=== PATIENT | female | born 1990 | race Two or more races ===

== ENCOUNTER 2018-08-17 05:43 | Inpatient (IN) | payer BC ==
--- NOTE | 2018-08-12 10:34 | PCM.LDHP ---
L&D History of Present Illness - General Date of Service: 08/11/18 Admit Problem/Dx: Admission Diagnosis/Problem Admission Diagnosis/Problem Source of Information: Patient History Limitations: Reports: No Limitations - History of Present Illness Introduction:: Leslie Alegre is a 28 year old female at 38 weeks 4 days (DANIEL 08/21/2018) by LMP consistent with 11 week ultrasound who presents for preoperative appointment for scheduled repeat section. Her repeat section scheduled for 08/17/2018 and she will be 39 weeks 3 days on day of the scheduled repeat section. She denies any contractions or cramping episodes. Denies any leaking of fluid or vaginal bleeding. She denies any abdominal or pelvic pain. Present Illness Comments:: Leslie Alegre is a 28 year old female currently at 38 weeks 4 days (DANIEL ) by LMP consistent with 11 week ultrasound with scheduled repeat section on 08/17/2018 when she will be 39 weeks 3 days. She has had routine care with myself starting at 11 weeks gestational age. She received flu vaccine in January 2018 and TDaP vaccine in June 2018. Overall her has been without significant complications. 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 The titer level did rise to 4 at her 36 week appointment. The level was repeated at her appointment on 2018. * History of section 2 and desires repeat * GBS bacteriuria and patient will be treated with antibiotics for section * Gastroesophageal reflux disease in treated with ranitidine * Mild anemia with hemoglobin of 11.0 on 07/27/2018, started on iron supplementation. Repeat hemoglobin was 11.4 on 08/11/2018. labs Blood type: A+ Antibody screen: Positive for anti-JKa antibody First trimester hematocrit/hemoglobin: 37.8%/12.9 on 02/11/2018 Platelets: 241 on 02/11/2018 Urine culture: GBS bacteriuria with colony count of 10-20,000 CFU Rubella status: Immune Hepatitis B surface antigen: Negative RPR: Negative HIV: Negative Gonorrhea: Negative Chlamydia: Negative Anatomy ultrasound: Normal anatomy, anterior placenta, no previa, 43rd percentile on 04/01/2018 One hour glucose tolerance test: 70 Second trimester hematocrit/hemoglobin: 35.4%/11.8 on 05/15/2018 Platelets: 276 on 05/15/2018 GBS status: Positive GBS bacteriuria - Related Data Allergies/Adverse Reactions: Allergies Allergy/AdvReac Type Severity Reaction Status Date / Time No Known Allergies Allergy Verified 07/10/18 11:31 Past Medical History Gastrointestinal History: Reports: GERD (in ) 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: : 3 Para: 2 Hematologic History: Reports: Other (See Below) (Positive anti-JKa antibody) Social & Family History - Tobacco Use Smoking Status *Q: Never Smoker - Tobacco Core Measures Tobacco Use/Smoking Within Last 30 Days: No Smokeless Tobacco Use in Last 30 Days: No - Alcohol Use Alcohol Use History: No - Recreational Drug Use Recreational Drug Use: No Drug Use in Last 12 Months: No - Living Situation & Occupation Living situation: Reports: , with Spouse H&P Review of Systems - Review of Systems: Review Of Systems: See Below General: Denies: Fever, Chills, Malaise, Weakness, Fatigue HEENT: Denies: Rhinitis, Post Nasal Drip, Sinus Congestion, Sore Throat, Visual Changes Pulmonary: Denies: Shortness of Breath, Wheezing, Pleuritic Chest Pain, Cough Cardiovascular: Denies: Chest Pain, Palpitations, Dyspnea on Exertion, Orthopnea Gastrointestinal: Denies: Abdominal Pain, Constipation, Diarrhea, Nausea, Vomiting Genitourinary: Denies: Dysuria, Frequency, Burning, Pain, Urgency Musculoskeletal: Reports: Joint Pain (Right hip pain with extended walking or standing) Skin: Denies: Rash, Lesions Psychiatric: Denies: Depression, Anxiety Neurological: Denies: Headache Hematologic/Lymphatic: Reports: Anemia (mild) L&D Exam - Exam Exam: See Below - Vital Signs Vital Signs: BP: 106/70 - OB Specific Fundal Height In cm: 38 Contraction Duration (sec): None Contraction Frequency (min): None Movement: Active Heart Tones: Present Heart Tones per Min: 147 Presentation: Vertex Estimated Weight: 6.5 lbs by José Luis'yulisa in the office today - Exam General: Alert, Oriented HEENT: Conjunctiva Clear, EOMI Neck: Supple, Trachea Midline Lungs: Clear to Auscultation, Normal Respiratory Effort Cardiovascular: Regular Rate, Regular Rhythm GI/Abdominal Exam: Soft, Non-Tender, No Distention, Other (Gravid). No: Guarding, Rigid, Rebound Genitourinary: Deferred Back Exam: Normal Inspection, Full Range of Motion Extremities: No Pedal Edema Skin: Warm, Dry, Intact Psychiatric: Alert, Normal Affect, Normal Mood - Problem List (1) 39 weeks gestation of SNOMED Code(s): 03642517 ICD Code: Z3A.39 - 39 WEEKS GESTATION OF Status: Acute (2) History of delivery, currently SNOMED Code(s): 229135682, 734592283 ICD Code: O34.219 - MATERNAL CARE FOR UNSP TYPE SCAR FROM PREVIOUS DEL Status: Acute (3) History of 2 sections SNOMED Code(s): 810731626 ICD Code: Z98.891 - HISTORY OF UTERINE SCAR FROM PREVIOUS SURGERY Status: Acute (4) Abnormal antibody titer SNOMED Code(s): 381794946, 347134456 ICD Code: R76.0 - RAISED ANTIBODY TITER Status: Acute (5) Gastroesophageal reflux in SNOMED Code(s): 04381297875409929 ICD Code: O99.619 - DISEASES OF THE DGSTV SYS COMP , UNSP TRIMESTER ; K21.9 - GASTRO-ESOPHAGEAL REFLUX DISEASE WITHOUT ESOPHAGITIS Status: Acute Problem List Initiated/Reviewed/Updated: Yes Assessment/Plan Comment:: Leslie Alegre is a 28-year-old 002 currently at 38 weeks 4 days (DANIEL 2018), who will be 39 weeks 3 days on day of her scheduled repeat section on 08/17/2018, with plan for repeat section. Admit to inpatient after section NST prior to section Place IV and have Lactated Ringer's at 125 ml/hr SCDs for DVT prophylaxis Nothing by mouth Activity as tolerated Plan for spinal injection for anesthesia RPR and type and screen prior to surgery Plans to breast-feed after delivery Plan for Ancef 2 g IV for antibiotic prophylaxis prior to surgery Armin Arroyo M.D. 10:41 AM 08/12/2018
[~2018-08-17 05:43] MED LIST: Lactated Ringers 1,000 ML IV SCH; Sodium Chloride 0.9% 10 ML Syringe FLUSH PRN
[2018-08-17] MEDS ORDERED: ceFAZolin 2 GM in Premix Bag 1 BAG IV ONE (06:45)
[2018-08-17] MEDS ORDERED: Morphine PF 10 MG/10 ML SDV ONE (06:48)
[2018-08-17] MEDS ORDERED: Oxytocin 10 Units/1 ML SDV ONE ×2 (06:51)
[2018-08-17] MEDS ORDERED: ceFAZolin 1 GM Vial ONE ×2 (06:53)
[2018-08-17] MEDS ORDERED: Ondansetron 4 MG/2 ML SDV ONE (06:54)
[2018-08-17] MEDS ORDERED: Citric Acid/Sodium Citrate Solution 30 ML Cup PO ONE (07:00)
[2018-08-17] MEDS ORDERED: Metoclopramide 10 MG/2 ML SDV IVPUSH ONE (07:00)
[2018-08-17] MEDS ORDERED: Nalbuphine 10 MG/1 ML Vial IVPUSH PRN (07:00)
[2018-08-17] MEDS ORDERED: Oxytocin/Lactated Ringers 10 UNIT/1,000 ML BAG IV SCH ×2 (07:00→10:35)
[2018-08-17] MEDS ORDERED: Bupivacaine 0.5% 30 ML SDV ONE (07:06)
--- NOTE | 2018-08-17 07:24 | PCM.PREANE ---
Preanesthetic Assessment - Anesthesia/Transfusion/Family Hx Anesthesia History: Prior Anesthesia Without Reaction Family History of Anesthesia Reaction: Yes Transfusion History: No Prior Transfusion(s) - Review of Systems General: No Symptoms Pulmonary: No Symptoms Cardiovascular: No Symptoms Gastrointestinal: No Symptoms Neurological: No Symptoms Other: Reports: None - Physical Assessment NPO Status Date: 08/16/18 NPO Status Time: 22:00 Pulse: 100 O2 Sat by Pulse Oximetry: 100 Respiratory Rate: 14 Blood Pressure: 98/69 Vital Signs: Last Vital Signs Temp 36.6 C 08/17/18 06:09 Pulse 100 08/17/18 06:09 Resp 14 08/17/18 06:09 BP 98/69 08/17/18 06:09 Pulse Ox Height: 1.6 m Weight: 80.739 kg ASA Class: 1 Mental Status: Alert & Oriented x3 Airway Class: Mallampati = 1 Dentition: Reports: Normal Dentition Thyro-Mental Finger Breadths: 3 Mouth Opening Finger Breadths: 3 ROM/Head Extension: Full Lungs: Clear to Auscultation, Normal Respiratory Effort Cardiovascular: Regular Rate, Regular Rhythm - Lab Values: Laboratory Last Values WBC 9.55 K/mm3 (3.98-10.04) 08/17/18 05:59 RBC 4.01 M/mm3 (3.98-5.22) 08/17/18 05:59 Hgb 11.7 gm/L (11.2-15.7) 08/17/18 05:59 Hct 35.8 % (34.1-44.9) 08/17/18 05:59 MCV 89.3 fl (79.4-94.8) 08/17/18 05:59 MCH 29.2 pg (25.6-32.2) 08/17/18 05:59 MCHC 32.7 g/dl (32.2-35.5) 08/17/18 05:59 RDW Std Deviation 47.5 fL (36.4-46.3) H 08/17/18 05:59 Plt Count 239 K/mm3 (182-369) 08/17/18 05:59 MPV 10.2 fl (9.4-12.3) 08/17/18 05:59 Neut % (Auto) 61.7 % (34.0-71.1) 08/17/18 05:59 Lymph % (Auto) 26.7 % (19.3-51.7) 08/17/18 05:59 [place] % (Auto) 8.1 % (4.7-12.5) 08/17/18 05:59 Eos % (Auto) 2.5 (0.7-5.8) 08/17/18 05:59 Baso % (Auto) 0.4 % (0.1-1.2) 08/17/18 05:59 Neut # (Auto) 5.89 K/mm3 (1.56-6.13) 08/17/18 05:59 Lymph # (Auto) 2.55 K/mm3 (1.18-3.74) 08/17/18 05:59 [place] # (Auto) 0.77 K/mm3 (0.24-0.36) H 08/17/18 05:59 Eos # (Auto) 0.24 K/mm3 (0.04-0.36) 08/17/18 05:59 Baso # (Auto) 0.04 K/mm3 (0.01-0.08) 08/17/18 05:59 Blood Type A POSITIVE 08/17/18 05:59 Gel Antibody Screen Positive 08/17/18 05:59 - Allergies Allergies/Adverse Reactions: Allergies Allergy/AdvReac Type Severity Reaction Status Date / Time No Known Allergies Allergy Verified 07/10/18 11:31 - Acknowledgements Anesthesia Type Planned: Spinal Pt an Appropriate Candidate for the Planned Anesthesia: Yes Alternatives and Risks of Anesthesia Discussed w Pt/Guardian: Yes Pt/Guardian Understands and Agrees with Anesthesia Plan: Yes PreAnesthesia Questionnaire HEENT History: Reports: None Cardiovascular History: Reports: None Respiratory History: Reports: None Gastrointestinal History: Reports: None Genitourinary History: Reports: None 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: Musculoskeletal History: Reports: None Neurological History: Reports: None Psychiatric History: Reports: None Endocrine/Metabolic History: Reports: None Hematologic History: Reports: Other (See Below) (Positive anti-JKa antibody) - Past Surgical History Female Surgical History: Reports: Section (x2) - SUBSTANCE USE Smoking Status *Q: Never Smoker Recreational Drug Use History: No - CURRENT (IN HOUSE) MEDS Current Meds: Current Medications Lactated Ringer's (Ringers, Lactated) 1,000 mls @ 125 mls/hr IV ASDIRECTED RUTH Last Admin: 08/17/18 07:15 Dose: 125 mls/hr Oxytocin/Lactated Ringer's (Pitocin In Lr 10 Units/1,000 Ml) 10 unit in 1,000 mls @ 100 mls/hr IV ASDIRECTED RUTH; Protocol Nalbuphine HCl (Nubain) 10 mg IVPUSH Q2H PRN PRN Reason: Pain Sodium Chloride (Saline Flush) 10 ml FLUSH ASDIRECTED PRN PRN Reason: Keep Vein Open Discontinued Medications Bupivacaine HCl (Marcaine 0.5%) Confirm Administered Dose 30 ml .ROUTE .STK-MED ONE Stop: 08/17/18 07:07 Cefazolin Sodium (Ancef) Confirm Administered Dose 1 gm .ROUTE .STK-MED ONE Stop: 08/17/18 06:54 Cefazolin Sodium (Ancef) Confirm Administered Dose 1 gm .ROUTE .STK-MED ONE Stop: 08/17/18 06:54 Citric Acid/Sodium Citrate (Bicitra Solution) 30 ml PO ONETIME ONE Stop: 08/17/18 07:01 Last Admin: 08/17/18 07:15 Dose: 30 ml Cefazolin Sodium/Dextrose 2 gm (/ Premix) 50 mls @ 100 mls/hr IV ONETIME ONE Stop: 08/17/18 07:14 Metoclopramide HCl (Reglan) 10 mg IVPUSH ONETIME ONE Stop: 08/17/18 07:01 Last Admin: 08/17/18 07:15 Dose: 10 mg Morphine Sulfate (Duramorph Pf) Confirm Administered Dose 10 mg .ROUTE .STK-MED ONE Stop: 08/17/18 06:49 Ondansetron HCl (Zofran) Confirm Administered Dose 4 mg .ROUTE .STK-MED ONE Stop: 08/17/18 06:55 Oxytocin (Pitocin) Confirm Administered Dose 10 unit .ROUTE .STK-MED ONE Stop: 08/17/18 06:52 Oxytocin (Pitocin) Confirm Administered Dose 10 unit .ROUTE .STK-MED ONE Stop: 08/17/18 06:52
[2018-08-17] MEDS ORDERED: ePHEDrine/Normal Saline 25 MG/5 ML Syringe ONE (08:34)
[2018-08-17] MEDS ORDERED: diphenhydrAMINE 50 MG/ML SDV IVPUSH PRN ×2 (08:47→10:35)
[2018-08-17] MEDS ORDERED: Ondansetron 4 MG/2 ML SDV IVPUSH PRN (08:47)
[2018-08-17] MEDS ORDERED: Ketorolac 30 MG/ML SDV ONE (08:50)
--- NOTE | 2018-08-17 09:22 | PCM.POSTAN ---
POST ANESTHESIA ASSESSMENT - MENTAL STATUS Mental Status: Alert, Oriented - VITAL SIGNS Pulse Rate: 89 SaO2: 100 Resp Rate: 17 Blood Pressure: 98/61 Temperature: 97.8 C - RESPIRATORY Respiratory Status: Respiratory Rate WNL, Airway Patent, O2 Saturation Stable - GASTROINTESTINAL GI Status: No Symptoms - POST OP HYDRATION Hydration Status: Adequate & Stable
[2018-08-17] MEDS ORDERED: Ondansetron 4 MG/2 ML SDV IV PRN (10:35)
[2018-08-17] MEDS ORDERED: Lanolin 100% Cream 7 GM Tube TOP PRN (10:35)
[2018-08-17] MEDS ORDERED: Acetaminophen/oxyCODONE 325-5 MG Tab PO PRN ×2 (10:35)
[2018-08-17] MEDS ORDERED: ePHEDrine 50 MG/ML SDV IVPUSH PRN (10:35)
[2018-08-17] MEDS ORDERED: Lactated Ringers 1,000 ML IV SCH (10:35)
[2018-08-17] MEDS ORDERED: Naloxone 0.4 MG/ML SDV IVPUSH PRN (10:35)
[2018-08-17] MEDS ORDERED: Aluminum Hydroxide/Magnesium Hydroxide/Simethicone Susp 30 ML Cup PO PRN (10:35)
--- NOTE | 2018-08-17 12:14 | PCM.OPNOTE ---
- General Post-Op/Procedure Note Date of Surgery/Procedure: 08/17/18 Operative Procedure(s): Repeat section Findings: Live female infant delivered in vertex presentation and 0 825. weight of 2960 g (6 pounds 8.4 ounces). Apgars of 8 and 9. There were areas of adhesions from the anterior uterine wall to the anterior abdominal wall that were taken down prior to the hysterotomy. There was also a prominent venous vessel in the lower uterine segment that was eventually tied off using a Federico stitch. The uterus, fallopian tubes and ovaries were overall normal. Pre Op Diagnosis: 39 weeks gestational age, history of section 2 and history of abnormal anti-JKa antibodies. Post-Op Diagnosis: Same Anesthesia Technique: Spinal Primary Surgeon: Armin Arroyo Anesthesia Provider: Ariana Howell Personal Lines Underwriter: Sav Yadav Personal Lines Underwriter: Ismael Ballesteros (PA Student) Reason Personal Lines Underwriter Was Necessary: Patient safety and reduction of morbidity and mortality Role of Personal Lines Underwriter: Retraction for visualization during procedure Pathology: None Fluid Replacement, Intraop: 1,300 Output, Urine Amount: 100 EBL in mLs: 450 Complications: None Condition: Good Free Text/Narrative:: Intake & Output 08/16/18 08/17/18 08/17/18 22:59 06:59 14:59 Intake Total 600 Output Total 450 Balance 150 Length of procedure: 46 minutes Procedure in Detail: The patient was seen in labor and delivery in room #5 and the risks, benefits and complications were discussed with the patient. The patient desired to proceed with section and appropriate consents were reviewed. The patient was taken to operating room #1. A Time Out was held and the patient was identified using 2 identifiers and the procedure was confirmed. The patient was given spinal anesthesia and was placed in dorsal supine position with leftward tilt. She was given 2 g Ancef for antibiotic prophylaxis. The patient was prepped and draped in the usual sterile manner. The abdominal skin was tested and the spinal anesthesia was found to be adequate. The skin was injected with 0.5% marcaine for local anesthesia. A Pfannenstiel skin incision was made and carried down through the subcutaneous tissue to the fascia with the scapel. The fascia was nicked in the midline using a scalpel and the fascial incision was extended transversely with Beal scissors. The inferior aspect of the fascia was grasped with Errol clamps and tented upwards. The fascia was from the underlying rectus muscle bluntly and sharply with Beal scissors. Attention was then turned to the superior aspect of the fascia and was grasped using Errol clamps and tented upwards. The underlying rectus muscle was dissected off bluntly and sharply with Beal scissors. The midline between the rectus muscles was using a hemostat clamp until the peritoneum was identified and entered sharply with Metzenbaum scissors. The rectus muscles were using blunt force traction. There was noted to be some scar tissue from the anterior surface of the uterus to the anterior abdominal wall. This is taken down using Metzenbaum scissors. There was noted be a very prominent venous vessel over the bladder flap and the left side of the uterus near the lower uterine segment. The utero- vesical peritoneal reflection was identified and the peritoneum was incised with Metzenabaum scissors and transversely extended. The bladder blade was inserted and the lower uterine segment was identified. A low transverse uterine incision was made sharply with a scalpel and extended laterally bluntly. The infant's head was brought to the uterine incision, the bladder blade was removed and the was delivered atraumatically. On 08/17/2018 a live female was delivered in vertex position at 0825, wt of 2960 grams, 6 pounds and 8.4 ounces. APGARS were 8 & 9. The nose and mouth were suctioned with bulb suction, the cord was doubly clamped and cut and was transferred to the awaiting manganese heater, Dr. Lisa, who took the baby to the warmer. The placenta was removed intact and appeared normal with a three vessel cord. The uterus was exteriorized and the uterine cavity was cleaned using lap sponges. The hysterotomy was closed with a running locked suture of 0-Vicryl. There was an area of bleeding noted superior to the hysterotomy that was repaired with several wnorst-st-pfamq sutures and hemostasis was noted. A second suture of 0-Vicryl was used to imbricate the hysterotomy. The area with the prominent lower uterine segment pain was having some bleeding and attempt was made to have control with a qojtcs-uy-uhkqx suture using 0 Vicryl. This was unsuccessful and continued to have some bleeding from this area. The vessel was clamped using a hemostat and a Federico stitch was placed around the vessel with 0 Vicryl suture. Hemostasis was noted at this time. The hysterotomy was hemostatic. The uterus, tubes and ovaries appeared overall normal. The uterus was then returned into the abdominal cavity. The hysterotomy was noted to have a small amount of bleeding near the right edge of the hysterotomy and this was made hemostatic with a wyupxt-jo-tyhsc stitch using 0 Vicryl. The fascia was noted to be hemostatic and the fascia was then reapproximated with running sutures of 0 PDS. The skin was reapproximated using 4-0 Monocryl and Steri-strips were applied over the incision. Instrument, sponge, and needle counts were correct prior to the abdominal closure and at the conclusion of the case.
[2018-08-17] MEDS: Ketorolac 30 MG/ML SDV IVPUSH SCH ×2 (15:19→21:04)
[2018-08-17] MEDS: Docusate Sodium 100 MG Cap PO SCH ×2 (21:19→22:19)
[2018-08-18] MEDS: Ketorolac 30 MG/ML SDV IVPUSH SCH (02:55)
--- NOTE | 2018-08-18 06:19 | PCM.SN ---
- Free Text/Narrative Note: Post Operative Progress Note POD # 1 Subjective: Doing well overall. Ambulating without difficulty but did have some increased amount of pain with ambulation. Lochia minimal. Hanson removed this morning and able to void without difficulty. Passing flatus. Tolerating regular diet without nausea or vomiting. Pain controlled with IV Toradol at this time. Breast-feeding with minimal difficulty. Objective: Vitals: Vital Signs - 24 hr 08/17/18 08/17/18 08/17/18 07:24 09:12 09:15 Temperature Temperature [ 36.6 C 36.6 C Temporal] Pulse, 100 Peripheral Pulse, 89 80 Peripheral [ Pulse Oximetry] Respiratory 14 17 16 Rate Blood Pressure 98/69 Blood Pressure 98/61 104/49 L [Left Arm] O2 Sat by Pulse 100 100 98 Oximetry 08/17/18 08/17/18 08/17/18 09:21 09:30 09:45 Temperature 97.8 C H Temperature [ 36.4 C 36.4 C Temporal] Pulse, 89 Peripheral Pulse, 80 80 Peripheral [ Pulse Oximetry] Respiratory 17 18 19 Rate Blood Pressure 98/61 Blood Pressure 94/55 L 103/61 [Left Arm] O2 Sat by Pulse 100 100 99 Oximetry 08/17/18 08/17/18 08/17/18 10:00 10:02 10:42 Temperature 36.9 C 37.2 C Temperature [ Temporal] Pulse, 76 87 Peripheral Pulse, Peripheral [ Pulse Oximetry] Respiratory 18 18 Rate Blood Pressure 127/113 H 115/89 Blood Pressure 98/70 [Left Arm] O2 Sat by Pulse 100 96 Oximetry 08/17/18 08/17/18 08/17/18 11:10 11:51 13:06 Temperature 36.7 C 36.3 C 36.3 C Temperature [ Temporal] Pulse, 84 94 95 Peripheral Pulse, Peripheral [ Pulse Oximetry] Respiratory 18 16 16 Rate Blood Pressure 106/61 100/58 L 108/62 Blood Pressure [Left Arm] O2 Sat by Pulse 98 98 99 Oximetry 08/17/18 08/17/18 08/17/18 15:35 16:48 21:15 Temperature 36.3 C 36.3 C 36.5 C Temperature [ Temporal] Pulse, 80 80 86 Peripheral Pulse, Peripheral [ Pulse Oximetry] Respiratory 16 16 16 Rate Blood Pressure 106/68 99/74 110/64 Blood Pressure [Left Arm] O2 Sat by Pulse 98 100 99 Oximetry 08/17/18 23:09 Temperature 36.6 C Temperature [ Temporal] Pulse, 85 Peripheral Pulse, Peripheral [ Pulse Oximetry] Respiratory 16 Rate Blood Pressure 102/64 Blood Pressure [Left Arm] O2 Sat by Pulse 97 Oximetry Physical Exam General: Alert and oriented, no acute distress Lungs: Clear to auscultation bilaterally Heart: Regular rate and rhythm Abdomen: Soft, minimal appropriate tenderness, non-distended, fundus midline, nontender and 2 finger breadths below the umbilicus Incision: Clean, dry and intact, no erythema, bleeding or drainage with Steri- Strips in place Extremities: No edema Labs: Laboratory Results - last 24 hr 08/17/18 08/17/18 08/17/18 Range/Units 05:59 05:59 05:59 WBC 9.55 (3.98-10.04) K/mm3 RBC 4.01 (3.98-5.22) M/mm3 Hgb 11.7 (11.2-15.7) gm/L Hct 35.8 (34.1-44.9) % MCV 89.3 (79.4-94.8) fl MCH 29.2 (25.6-32.2) pg MCHC 32.7 (32.2-35.5) g/dl RDW Std Deviation 47.5 H (36.4-46.3) fL Plt Count 239 (182-369) K/mm3 MPV 10.2 (9.4-12.3) fl Neut % (Auto) 61.7 (34.0-71.1) % Lymph % (Auto) 26.7 (19.3-51.7) % [place] % (Auto) 8.1 (4.7-12.5) % Eos % (Auto) 2.5 (0.7-5.8) Baso % (Auto) 0.4 (0.1-1.2) % Neut # (Auto) 5.89 (1.56-6.13) K/mm3 Lymph # (Auto) 2.55 (1.18-3.74) K/mm3 [place] # (Auto) 0.77 H (0.24-0.36) K/mm3 Eos # (Auto) 0.24 (0.04-0.36) K/mm3 Baso # (Auto) 0.04 (0.01-0.08) K/mm3 RPR Non-reactive (NONREACTIVE) Blood Type A POSITIVE Gel Antibody Screen Positive ASSESSMENT: 28-year-old female s/p repeat section POD #1 for history of section 2, complicated by positive anti-JKa antibodies, GBS bacteriuria, gastroesophageal reflux in and mild anemia with iron supplementation and resolution PLAN: Doing well Breast-feeding with minimal difficulty. Assist as needed Incision healing well. Continue to keep clean and dry. Lochia minimal. Continue to monitor for appropriate lochia. Continue routine post-operative care We will follow-up on morning CBC as it was drawn at time of my rounding Anticipate discharge home tomorrow Armin Arroyo MD 6:18 AM 08/18/2018
[2018-08-18] MEDS: Ibuprofen 600 MG Tab PO PRN ×2 (09:12→18:29)
[2018-08-18] MEDS: Prenatal Multivitamin with Calcium/Folic Acid/Iron Tab PO SCH (09:13)
--- NOTE | 2018-08-18 09:39 | PCM48HPAN ---
Post Anesthesia Note - EVALUATION WITHIN 48HRS OF ANESTHETIC Vital Signs in Normal Range: Yes Patient Participated in Evaluation: Yes Respiratory Function Stable: Yes Airway Patent: Yes Cardiovascular Function Stable: Yes Hydration Status Stable: Yes Pain Control Satisfactory: Yes Nausea and Vomiting Control Satisfactory: Yes Mental Status Recovered: Yes
[2018-08-18] MEDS: Docusate Sodium 100 MG Cap PO SCH (14:46)
[2018-08-19] MEDS: Docusate Sodium 100 MG Cap PO SCH ×2 (00:19→08:33)
[2018-08-19] MEDS: Ibuprofen 600 MG Tab PO PRN ×2 (00:20→08:33)
--- NOTE | 2018-08-19 08:19 | PCM.SN ---
- Free Text/Narrative Note: Post Operative Progress Note POD # 2 Subjective: Doing well overall. Ambulating without difficulty. Lochia minimal. Voiding without difficulty. Passing flatus and has had a bowel movement without difficulty. Tolerating regular diet without nausea or vomiting. Pain controlled with ibuprofen. Breast-feeding with minimal difficulty. Objective: Vitals: Vital Signs - 24 hr 08/18/18 08/18/18 08/18/18 10:06 14:45 21:52 Temperature 36.8 C 36.7 C Pulse, 97 90 86 Peripheral Respiratory 16 16 14 Rate Blood Pressure 108/69 108/66 102/58 L O2 Sat by Pulse 98 98 98 Oximetry 08/19/18 03:52 Temperature 36.6 C Pulse, 89 Peripheral Respiratory 16 Rate Blood Pressure 107/60 O2 Sat by Pulse 98 Oximetry Physical Exam General: Alert and oriented, no acute distress Lungs: Clear to auscultation bilaterally Heart: Regular rate and rhythm Abdomen: Soft, minimal appropriate tenderness, non-distended, fundus midline, nontender and 2 finger breadths below the umbilicus Incision: Clean, dry and intact, no erythema, bleeding or drainage with Steri- Strips in place Extremities: No edema Labs: Laboratory Tests 08/17/18 08/17/18 08/17/18 Range/Units 05:59 05:59 05:59 WBC 9.55 (3.98-10.04) K/mm3 RBC 4.01 (3.98-5.22) M/mm3 Hgb 11.7 (11.2-15.7) gm/L Hct 35.8 (34.1-44.9) % MCV 89.3 (79.4-94.8) fl MCH 29.2 (25.6-32.2) pg MCHC 32.7 (32.2-35.5) g/dl RDW Std Deviation 47.5 H (36.4-46.3) fL Plt Count 239 (182-369) K/mm3 MPV 10.2 (9.4-12.3) fl Neut % (Auto) 61.7 (34.0-71.1) % Lymph % (Auto) 26.7 (19.3-51.7) % Grimes % (Auto) 8.1 (4.7-12.5) % Eos % (Auto) 2.5 (0.7-5.8) Baso % (Auto) 0.4 (0.1-1.2) % Neut # (Auto) 5.89 (1.56-6.13) K/mm3 Lymph # (Auto) 2.55 (1.18-3.74) K/mm3 Grimes # (Auto) 0.77 H (0.24-0.36) K/mm3 Eos # (Auto) 0.24 (0.04-0.36) K/mm3 Baso # (Auto) 0.04 (0.01-0.08) K/mm3 RPR Non-reactive (NONREACTIVE) Blood Type A POSITIVE Gel Antibody Screen Positive Antibody Identification Anti-Jka 08/18/18 Range/Units 06:10 WBC 8.14 (3.98-10.04) K/mm3 RBC 3.43 L (3.98-5.22) M/mm3 Hgb 9.9 L D (11.2-15.7) gm/L Hct 31.2 L (34.1-44.9) % MCV 91.0 (79.4-94.8) fl MCH 28.9 (25.6-32.2) pg MCHC 31.7 L (32.2-35.5) g/dl RDW Std Deviation 48.0 H (36.4-46.3) fL Plt Count 205 (182-369) K/mm3 MPV 10.1 (9.4-12.3) fl Neut % (Auto) 70.0 (34.0-71.1) % Lymph % (Auto) 20.3 (19.3-51.7) % Grimes % (Auto) 7.1 (4.7-12.5) % Eos % (Auto) 1.7 (0.7-5.8) Baso % (Auto) 0.5 (0.1-1.2) % Neut # (Auto) 5.70 (1.56-6.13) K/mm3 Lymph # (Auto) 1.65 (1.18-3.74) K/mm3 Grimes # (Auto) 0.58 H (0.24-0.36) K/mm3 Eos # (Auto) 0.14 (0.04-0.36) K/mm3 Baso # (Auto) 0.04 (0.01-0.08) K/mm3 RPR (NONREACTIVE) Blood Type Gel Antibody Screen Antibody Identification ASSESSMENT: 28-year-old female s/p repeat section POD #2 for history of section 2, complicated by positive anti-JKa antibodies, GBS bacteriuria, gastroesophageal reflux in and mild anemia with iron supplementation and resolution PLAN: Doing well Breast-feeding with minimal difficulty. Assist as needed Incision healing well. Continue to keep clean and dry. Lochia minimal. Continue to monitor for appropriate lochia. Continue routine post-operative care Anticipated normal drop in her hemoglobin from preoperative to postoperative day #1. Vital signs have been normal. Low concern for acute blood loss anemia requiring blood transfusion. Discharge home today Armin Arroyo MD 8:18 AM 08/19/2018
--- NOTE | 2018-08-19 08:29 | PCM.DCSUM1 ---
Discharge Summary - Hospital Course Free Text/Narrative:: Procedure in Detail: The patient was seen in labor and delivery in room #5 and the risks, benefits and complications were discussed with the patient. The patient desired to proceed with section and appropriate consents were reviewed. The patient was taken to operating room #1. A Time Out was held and the patient was identified using 2 identifiers and the procedure was confirmed. The patient was given spinal anesthesia and was placed in dorsal supine position with leftward tilt. She was given 2 g Ancef for antibiotic prophylaxis. The patient was prepped and draped in the usual sterile manner. The abdominal skin was tested and the spinal anesthesia was found to be adequate. The skin was injected with 0.5% marcaine for local anesthesia. A Pfannenstiel skin incision was made and carried down through the subcutaneous tissue to the fascia with the scapel. The fascia was nicked in the midline using a scalpel and the fascial incision was extended transversely with Beal scissors. The inferior aspect of the fascia was grasped with Errol clamps and tented upwards. The fascia was from the underlying rectus muscle bluntly and sharply with Beal scissors. Attention was then turned to the superior aspect of the fascia and was grasped using Errol clamps and tented upwards. The underlying rectus muscle was dissected off bluntly and sharply with Beal scissors. The midline between the rectus muscles was using a hemostat clamp until the peritoneum was identified and entered sharply with Metzenbaum scissors. The rectus muscles were using blunt force traction. There was noted to be some scar tissue from the anterior surface of the uterus to the anterior abdominal wall. This is taken down using Metzenbaum scissors. There was noted be a very prominent venous vessel over the bladder flap and the left side of the uterus near the lower uterine segment. The utero- vesical peritoneal reflection was identified and the peritoneum was incised with Metzenabaum scissors and transversely extended. The bladder blade was inserted and the lower uterine segment was identified. A low transverse uterine incision was made sharply with a scalpel and extended laterally bluntly. The 's head was brought to the uterine incision, the bladder blade was removed and the infant was delivered atraumatically. On 08/17/2018 a live female infant was delivered in vertex position at 0825, wt of 2960 grams, 6 pounds and 8.4 ounces. APGARS were 8 & 9. The nose and mouth were suctioned with bulb suction, the cord was doubly clamped and cut and was transferred to the awaiting material handling crew supervisor, Dr. Lisa, who took the baby to the warmer. The placenta was removed intact and appeared normal with a three vessel cord. The uterus was exteriorized and the uterine cavity was cleaned using lap sponges. The hysterotomy was closed with a running locked suture of 0-Vicryl. There was an area of bleeding noted superior to the hysterotomy that was repaired with several yekscq-lg-ivbyy sutures and hemostasis was noted. A second suture of 0-Vicryl was used to imbricate the hysterotomy. The area with the prominent lower uterine segment pain was having some bleeding and attempt was made to have control with a spvmjd-vc-trtsv suture using 0 Vicryl. This was unsuccessful and continued to have some bleeding from this area. The vessel was clamped using a hemostat and a Federico stitch was placed around the vessel with 0 Vicryl suture. Hemostasis was noted at this time. The hysterotomy was hemostatic. The uterus, tubes and ovaries appeared overall normal. The uterus was then returned into the abdominal cavity. The hysterotomy was noted to have a small amount of bleeding near the right edge of the hysterotomy and this was made hemostatic with a hfbmat-uq-rujhy stitch using 0 Vicryl. The fascia was noted to be hemostatic and the fascia was then reapproximated with running sutures of 0 PDS. The skin was reapproximated using 4-0 Monocryl and Steri-strips were applied over the incision. Instrument, sponge, and needle counts were correct prior to the abdominal closure and at the conclusion of the case. HPI Initial Comments: Procedure in Detail: The patient was seen in labor and delivery in room #5 and the risks, benefits and complications were discussed with the patient. The patient desired to proceed with section and appropriate consents were reviewed. The patient was taken to operating room #1. A Time Out was held and the patient was identified using 2 identifiers and the procedure was confirmed. The patient was given spinal anesthesia and was placed in dorsal supine position with leftward tilt. She was given 2 g Ancef for antibiotic prophylaxis. The patient was prepped and draped in the usual sterile manner. The abdominal skin was tested and the spinal anesthesia was found to be adequate. The skin was injected with 0.5% marcaine for local anesthesia. A Pfannenstiel skin incision was made and carried down through the subcutaneous tissue to the fascia with the scapel. The fascia was nicked in the midline using a scalpel and the fascial incision was extended transversely with Beal scissors. The inferior aspect of the fascia was grasped with Errol clamps and tented upwards. The fascia was from the underlying rectus muscle bluntly and sharply with Beal scissors. Attention was then turned to the superior aspect of the fascia and was grasped using Errol clamps and tented upwards. The underlying rectus muscle was dissected off bluntly and sharply with Beal scissors. The midline between the rectus muscles was using a hemostat clamp until the peritoneum was identified and entered sharply with Metzenbaum scissors. The rectus muscles were using blunt force traction. There was noted to be some scar tissue from the anterior surface of the uterus to the anterior abdominal wall. This is taken down using Metzenbaum scissors. There was noted be a very prominent venous vessel over the bladder flap and the left side of the uterus near the lower uterine segment. The utero- vesical peritoneal reflection was identified and the peritoneum was incised with Metzenabaum scissors and transversely extended. The bladder blade was inserted and the lower uterine segment was identified. A low transverse uterine incision was made sharply with a scalpel and extended laterally bluntly. The 's head was brought to the uterine incision, the bladder blade was removed and the infant was delivered atraumatically. On 08/17/2018 a live female infant was delivered in vertex position at 0825, wt of 2960 grams, 6 pounds and 8.4 ounces. APGARS were 8 & 9. The nose and mouth were suctioned with bulb suction, the cord was doubly clamped and cut and infant was transferred to the awaiting material handling crew supervisor, Dr. Lisa, who took the baby to the warmer. The placenta was removed intact and appeared normal with a three vessel cord. The uterus was exteriorized and the uterine cavity was cleaned using lap sponges. The hysterotomy was closed with a running locked suture of 0-Vicryl. There was an area of bleeding noted superior to the hysterotomy that was repaired with several vxzcah-ff-sqhrv sutures and hemostasis was noted. A second suture of 0-Vicryl was used to imbricate the hysterotomy. The area with the prominent lower uterine segment pain was having some bleeding and attempt was made to have control with a njyoqm-xx-nkmyl suture using 0 Vicryl. This was unsuccessful and continued to have some bleeding from this area. The vessel was clamped using a hemostat and a Federico stitch was placed around the vessel with 0 Vicryl suture. Hemostasis was noted at this time. The hysterotomy was hemostatic. The uterus, tubes and ovaries appeared overall normal. The uterus was then returned into the abdominal cavity. The hysterotomy was noted to have a small amount of bleeding near the right edge of the hysterotomy and this was made hemostatic with a dpbcat-gq-dqmym stitch using 0 Vicryl. The fascia was noted to be hemostatic and the fascia was then reapproximated with running sutures of 0 PDS. The skin was reapproximated using 4-0 Monocryl and Steri-strips were applied over the incision. Instrument, sponge, and needle counts were correct prior to the abdominal closure and at the conclusion of the case. Brief History: Procedure in Detail: The patient was seen in labor and delivery in room #5 and the risks, benefits and complications were discussed with the patient. The patient desired to proceed with section and appropriate consents were reviewed. The patient was taken to operating room # 1. A Time Out was held and the patient was identified using 2 identifiers and the procedure was confirmed. The patient was given spinal anesthesia and was placed in dorsal supine position with leftward tilt. She was given 2 g Ancef for antibiotic prophylaxis. The patient was prepped and draped in the usual sterile manner. The abdominal skin was tested and the spinal anesthesia was found to be adequate. The skin was injected with 0.5% marcaine for local anesthesia. A Pfannenstiel skin incision was made and carried down through the subcutaneous tissue to the fascia with the scapel. The fascia was nicked in the midline using a scalpel and the fascial incision was extended transversely with Beal scissors. The inferior aspect of the fascia was grasped with Errol clamps and tented upwards. The fascia was from the underlying rectus muscle bluntly and sharply with Beal scissors. Attention was then turned to the superior aspect of the fascia and was grasped using Errol clamps and tented upwards. The underlying rectus muscle was dissected off bluntly and sharply with Beal scissors. The midline between the rectus muscles was using a hemostat clamp until the peritoneum was identified and entered sharply with Metzenbaum scissors. The rectus muscles were using blunt force traction. There was noted to be some scar tissue from the anterior surface of the uterus to the anterior abdominal wall. This is taken down using Metzenbaum scissors. There was noted be a very prominent venous vessel over the bladder flap and the left side of the uterus near the lower uterine segment. The utero-vesical peritoneal reflection was identified and the peritoneum was incised with Metzenabaum scissors and transversely extended. The bladder blade was inserted and the lower uterine segment was identified. A low transverse uterine incision was made sharply with a scalpel and extended laterally bluntly. The 's head was brought to the uterine incision, the bladder blade was removed and the was delivered atraumatically. On 2018 a live female infant was delivered in vertex position at 0825, wt of 2960 grams, 6 pounds and 8.4 ounces. APGARS were 8 & 9. The nose and mouth were suctioned with bulb suction, the cord was doubly clamped and cut and infant was transferred to the awaiting material handling crew supervisor, Dr. Lisa, who took the baby to the warmer. The placenta was removed intact and appeared normal with a three vessel cord. The uterus was exteriorized and the uterine cavity was cleaned using lap sponges. The hysterotomy was closed with a running locked suture of 0 -Vicryl. There was an area of bleeding noted superior to the hysterotomy that was repaired with several ohrwym-sr-wgfvb sutures and hemostasis was noted. A second suture of 0-Vicryl was used to imbricate the hysterotomy. The area with the prominent lower uterine segment pain was having some bleeding and attempt was made to have control with a klfmim-wd-arirw suture using 0 Vicryl. This was unsuccessful and continued to have some bleeding from this area. The vessel was clamped using a hemostat and a Federico stitch was placed around the vessel with 0 Vicryl suture. Hemostasis was noted at this time. The hysterotomy was hemostatic. The uterus, tubes and ovaries appeared overall normal. The uterus was then returned into the abdominal cavity. The hysterotomy was noted to have a small amount of bleeding near the right edge of the hysterotomy and this was made hemostatic with a decfmu-vn-qxnxt stitch using 0 Vicryl. The fascia was noted to be hemostatic and the fascia was then reapproximated with running sutures of 0 PDS. The skin was reapproximated using 4-0 Monocryl and Steri-strips were applied over the incision. Instrument , sponge, and needle counts were correct prior to the abdominal closure and at the conclusion of the case. Diagnosis: Stroke: No - Discharge Data Discharge Date: 08/19/18 Discharge Disposition: Home, Self-Care 01 Condition: Good - Discharge Diagnosis/Problem(s) (1) 39 weeks gestation of SNOMED Code(s): 32143547 ICD Code: Z3A.39 - 39 WEEKS GESTATION OF Status: Acute Current Visit: No (2) History of delivery, currently SNOMED Code(s): 225408795, 489538807 ICD Code: O34.219 - MATERNAL CARE FOR UNSP TYPE SCAR FROM PREVIOUS DEL Status: Acute Current Visit: No (3) History of 2 sections SNOMED Code(s): 953833082 ICD Code: Z98.891 - HISTORY OF UTERINE SCAR FROM PREVIOUS SURGERY Status: Acute Current Visit: No (4) Abnormal antibody titer SNOMED Code(s): 023416873, 190290701 ICD Code: R76.0 - RAISED ANTIBODY TITER Status: Acute Current Visit: No (5) Gastroesophageal reflux in SNOMED Code(s): 62453404748382647 ICD Code: O99.619 - DISEASES OF THE DGSTV SYS COMP , UNSP TRIMESTER ; K21.9 - GASTRO-ESOPHAGEAL REFLUX DISEASE WITHOUT ESOPHAGITIS Status: Acute Current Visit: No (6) delivery delivered SNOMED Code(s): 551880599 ICD Code: O82 - ENCOUNTER FOR DELIVERY WITHOUT INDICATION Status: Acute Current Visit: Yes - Patient Summary/Data Operative Procedure(s) Performed: Repeat section Complications: None Consults: None Hospital Course: Leslie Alegre was admitted for scheduled repeat section. She was taken back to the OR and given spinal injection for anesthesia. She was given Ancef 2 g IV for antibiotic prophylaxis. She was prepped and draped in the normal fashion. On 08/17/2018 she had a normal repeat delivery of a live female at 0825. Apgars of 8 and 9. Weight of 2960 g (6 pounds 8.4 ounces). She was closed in a normal fashion. There were no complications with the procedure. Please see the operative report for full details. Her post operative course was uneventful. Her pain was well controlled and she had minimal lochia. She was ambulating, tolerating a regular diet and voiding normally. She was passing flatus and has had a bowel movement. She was breast feeding without difficulty. She was afebrile and her hematocrit was 31.2 on POD #1. She desired to be discharged home on the morning of POD #2. Her blood type is A+. - Patient Instructions Diet: Regular Diet as Tolerated Activity: Apply Ice, As Tolerated, No Lifting Over 25 Pounds Activity, Other: Nothing in the vagina for 6 weeks Driving: Do Not Drive (While on narcotic medications or having significant pain. ) Showering/Bathing: May Shower Wound/Incision Care: Keep Operative Site/Wound Site Clean and Dry Notify Provider of: Fever, Increased Pain, Swelling and Redness, Drainage, Nausea and/or Vomiting Other/Special Instructions: Please contact your physician's office if you note any bleeding or pus coming from the abdominal incision. Please contact your physician's office if you have heavy vaginal bleeding enough to soak a pad in less than an hour for several hours. Monitor for any signs of an infection in the breasts with severe pain or redness of the breast. - Discharge Plan *PRESCRIPTION DRUG MONITORING PROGRAM REVIEWED*: Yes *COPY OF PRESCRIPTION DRUG MONITORING REPORT IN PATIENT UNA: No (No record of prescriptions in the drug monitoring program) Prescriptions/Med Rec: Hydrocodone/Acetaminophen [[place] 5-325 Tablet] 1 - 2 each PO Q6H PRN #10 tablet PRN Reason: Pain Home Medications: Home Meds Alum Hydrox/Mag Hydrox/Simeth [Mag-Al Plus] 30 ml PO Q8H PRN cup 08/19/18 [Rx] Docusate Sodium [Colace] 100 mg PO Q12H cap 08/19/18 [Rx] Hydrocodone/Acetaminophen [[place] 5-325 Tablet] 1 - 2 each PO Q6H PRN #10 tablet 08/19/18 [Rx] Ibuprofen [Motrin] 600 mg PO Q6H PRN tablet 08/19/18 [Rx] Lanolin [Lansinoh HPA] 1 applic TOP ASDIRECTED PRN tube 08/19/18 [Rx] Vit with Ca/FA/Iron [ Plus Iron] 1 each PO DAILY tablet [Rx] Patient Handouts: Care After Delivery Referrals: Armin Arroyo MD [Primary Care Provider] - (Follow-up in 2 weeks for routine postoperative appointment or earlier as needed.) - Discharge Summary/Plan Comment DC Time >30 min.: No - Patient Data Vitals - Most Recent: Last Vital Signs Temp 36.6 C 08/19/18 03:52 Pulse 89 08/19/18 03:52 Resp 16 08/19/18 03:52 BP 107/60 08/19/18 03:52 Pulse Ox 98 08/19/18 03:52 Weight - Most Recent: 80.739 kg I&O - Last 24 hours: Intake & Output 08/18/18 08/19/18 08/19/18 22:59 06:59 14:59 Intake Total 730 Balance 730 Lab Results - Last 24 hrs: Laboratory Results - last 24 hr 08/17/18 Range/Units 05:59 Antibody Identification Anti-Jka Med Orders - Current: Current Medications Al Hydroxide/Mg Hydroxide (Mag-Al Plus) 30 ml PO Q8H PRN PRN Reason: Heartburn Diphenhydramine HCl (Benadryl) 25 mg IVPUSH Q6H PRN PRN Reason: Itching or Nausea Docusate Sodium (Colace) 100 mg PO Q12H RUTH Last Admin: 08/19/18 00:19 Dose: 100 mg Emollient Ointment (Lansinoh Hpa) 0 gm TOP ASDIRECTED PRN PRN Reason: Sore Nipples Ephedrine Sulfate (Ephedrine Sulfate) 5 mg IVPUSH SEECOMMENT PRN PRN Reason: Other Oxytocin/Lactated Ringer's (Pitocin In Lr 10 Units/1,000 Ml) 10 unit in 1,000 mls @ 100 mls/hr IV .CONTINUOUS RUTH Ibuprofen (Motrin) 600 mg PO Q6H PRN PRN Reason: mild pain or fever Last Admin: 08/19/18 00:20 Dose: 600 mg Naloxone HCl (Narcan) 0.1 mg IVPUSH SEECOMMENT PRN PRN Reason: Respiratory Depression Ondansetron HCl (Zofran) 4 mg IV Q8H PRN PRN Reason: Nausea/Vomiting Oxycodone/Acetaminophen (Percocet 325-5 Mg) 1 tab PO Q6H PRN PRN Reason: Pain (moderate 4-6) Oxycodone/Acetaminophen (Percocet 325-5 Mg) 2 tab PO Q6H PRN PRN Reason: Pain (severe 7-10) Prenat Multivit/Belen/Iron/Folic Ac ( Plus Iron) 1 each PO DAILY RUTH Last Admin: 08/18/18 09:13 Dose: 1 each Discontinued Medications Bupivacaine HCl (Marcaine 0.5%) Confirm Administered Dose 30 ml .ROUTE .STK-MED ONE Stop: 08/17/18 07:07 Last Admin: 08/17/18 08:19 Dose: 20 ml Cefazolin Sodium (Ancef) Confirm Administered Dose 1 gm .ROUTE .STK-MED ONE Stop: 08/17/18 06:54 Cefazolin Sodium (Ancef) Confirm Administered Dose 1 gm .ROUTE .STK-MED ONE Stop: 08/17/18 06:54 Citric Acid/Sodium Citrate (Bicitra Solution) 30 ml PO ONETIME ONE Stop: 08/17/18 07:01 Last Admin: 08/17/18 07:15 Dose: 30 ml Diphenhydramine HCl (Benadryl) 25 mg IVPUSH Q6H PRN PRN Reason: pruritis Ephedrine Sulfate (Ephedrine In Ns) Confirm Administered Dose 25 mg .ROUTE .STK- MED ONE Stop: 08/17/18 08:35 Cefazolin Sodium/Dextrose 2 gm (/ Premix) 50 mls @ 100 mls/hr IV ONETIME ONE Stop: 08/17/18 07:14 Lactated Ringer's (Ringers, Lactated) 1,000 mls @ 125 mls/hr IV ASDIRECTED RUTH Last Admin: 08/17/18 07:15 Dose: 125 mls/hr Oxytocin/Lactated Ringer's (Pitocin In Lr 10 Units/1,000 Ml) 10 unit in 1,000 mls @ 100 mls/hr IV ASDIRECTED RUTH; Protocol Lactated Ringer's (Ringers, Lactated) 1,000 mls @ 125 mls/hr IV ASDIRECTED RUTH Stop: 08/17/18 18:34 Last Admin: 08/17/18 13:57 Dose: 125 mls/hr Ketorolac Tromethamine (Toradol) Confirm Administered Dose 30 mg .ROUTE .STK- MED ONE Stop: 08/17/18 08:51 Ketorolac Tromethamine (Toradol) 30 mg IVPUSH Q6H RUTH Stop: 08/18/18 03:01 Last Admin: 08/18/18 02:55 Dose: 30 mg Metoclopramide HCl (Reglan) 10 mg IVPUSH ONETIME ONE Stop: 08/17/18 07:01 Last Admin: 08/17/18 07:15 Dose: 10 mg Morphine Sulfate (Duramorph Pf) Confirm Administered Dose 10 mg .ROUTE .STK-MED ONE Stop: 08/17/18 06:49 Nalbuphine HCl (Nubain) 10 mg IVPUSH Q2H PRN PRN Reason: Pain Ondansetron HCl (Zofran) Confirm Administered Dose 4 mg .ROUTE .STK-MED ONE Stop: 08/17/18 06:55 Ondansetron HCl (Zofran) 4 mg IVPUSH ONETIME PRN PRN Reason: Nausea/Vomiting Stop: 08/17/18 23:00 Oxytocin (Pitocin) Confirm Administered Dose 10 unit .ROUTE .STK-MED ONE Stop: 08/17/18 06:52 Oxytocin (Pitocin) Confirm Administered Dose 10 unit .ROUTE .STK-MED ONE Stop: 08/17/18 06:52 Sodium Chloride (Saline Flush) 10 ml FLUSH ASDIRECTED PRN PRN Reason: Keep Vein Open
[2018-08-19] MEDS: Prenatal Multivitamin with Calcium/Folic Acid/Iron Tab PO SCH (08:33)
== END 2018-08-19 10:50 | disposition home or self-care (01) | DRG 540 ==
LOC: JD.OB 05:43
PROVIDERS: ADMIT Obstetrics & Gynecology; ATTEND Obstetrics & Gynecology
PROC: 10D00Z1 Extraction of Products of Conception, Low, Open Approach (ICD-10-PCS; principal; 2018-08-17)
DX: O34.219 Maternal care for unspecified type scar from previous cesarean delivery (principal); N85.8 Other specified noninflammatory disorders of uterus; Z37.0 Single live birth; O99.62 Diseases of the digestive system complicating childbirth; K21.9 Gastro-esophageal reflux disease without esophagitis; O99.824 Streptococcus B carrier state complicating childbirth; O99.02 Anemia complicating childbirth; D64.9 Anemia, unspecified; Z3A.39 39 weeks gestation of pregnancy
CPT/HCPCS: 01961; 36415; 59025; 85025; 86592; 86850; 86870; 86900; 86901; A9270-GY; J0690; J1885; J2270; J2405; J2590; J2765; J3490; J7050; J7120